=== PATIENT | female | born 1980 | race Caucasian/White ===

== ENCOUNTER → 2017-12-21 | Outpatient (CLI) | payer OTHER | LOC: COL.RAD 12-20 12:45 | DX: D25.9 Leiomyoma of uterus, unspecified (principal); N85.8 Other specified noninflammatory disorders of uterus; N84.1 Polyp of cervix uteri ==

== ENCOUNTER → 2018-12-26 | Outpatient (CLI) | payer OTHER | LOC: COL.RAD 09:31 | DX: K21.9 Gastro-esophageal reflux disease without esophagitis (principal); K80.20 Calculus of gallbladder without cholecystitis without obstruction ==

== ENCOUNTER 2019-11-09 21:03 | Inpatient (IN) | payer OTHER ==
[~2019-11-09] VITALS: Ht 167.6 cm; Wt 117.7 kg
[2019-11-09 21:49] LABS: BASO # 0.1 (0.0-0.2); BASO % 0.8 % (0.0-2.0); EOS # 0.1 (0.0-0.7); EOS % 0.9 % (0-4.0); GRAN # 8.4 (1.4-6.5); GRAN % 66.2 % (42.2-75.2); HEMATOCRIT 41.5 % (37.0-47.0); HEMOGLOBIN 13.5 g/dl (12.5-16.0); LYMPH # 3.3 (1.2-3.4); LYMPH % 25.6 % (20.0-51.0); MEAN CELL VOLUME 93 fl (80.0-100.0); MEAN CORPUSCULAR HEMOGLOBIN 30 pg (27.0-31.0); MEAN CORPUSCULAR HGB CONC 33 g/dl (33.0-37.0); MEAN PLATELET VOLUME 9.1 fl (7.4-10.4); MONO # 0.8 (0.1-0.6); MONO % 6.1 % (1.7-9.3); PLATELET COUNT 445 K/mm3 (130-400); RED BLOOD COUNT 4.47 M/mm3 (4.10-5.30); REDCELL DISTRIBUTION WIDTH-CV 13.8 % (11.5-14.5)
[2019-11-09 22:02] LABS: ALANINE AMINOTRANSFERASE 22 U/L (9-52); ALBUMIN 4.4 gm/dL (3.5-5.0); ALKALINE PHOSPHATASE 102 U/L (50-136); ANION GAP 10 mmol/L (7-16); AST,SGOT 33 U/L (15-37); BILIRUBIN,TOTAL 0.1 mg/dL (0.0-1.0); BLOOD UREA NITROGEN 16 mg/dL (7-17); C-REACTIVE PROTEIN 1.6 mg/dL (0.0-0.9); CALCIUM 9.1 mg/dL (8.4-10.2); CARBON DIOXIDE 27 mmol/L (22-30); CHLORIDE 102 mmol/L (98-107); CREATININE, serum 0.88 (0.52-1.25); GLUCOSE 133 mg/dL (74-106); LIPASE 175 U/L (23-300); POTASSIUM 3.5 mmol/L (3.4-5.0); SODIUM 138 mmol/L (137-145); TOTAL PROTEIN 8.5 gm/dL (6.4-8.2)
[2019-11-09 22:13] LABS: TROPONIN-I < 0.012 ng/mL (0.000-0.035)
[2019-11-09 22:57] LABS: COLLECTION METHOD CLEAN CATCH
[2019-11-09 23:03] LABS: MUCOUS Present /lpf; PH 6 (5-8); SQUAMOUS EPITHELIAL 0-2 /hpf; URINE APPEARANCE Clear; URINE BACTERIA None Seen /hpf; URINE BILIRUBIN Negative (NEGATIVE); URINE BLOOD 1+ (NEGATIVE); URINE COLOR Yellow; URINE GLUCOSE Negative (NEGATIVE); URINE KETONE Trace (NEGATIVE); URINE LEUKOCYTE ESTERASE Negative (NEGATIVE); URINE NITRATE Negative (NEGATIVE); URINE PROTEIN(semi-quant) Negative (NEGATIVE); URINE RBC 0-2 /hpf; URINE UROBILINOGEN Negative (NEGATIVE)
[2019-11-10] VITALS (8 sets, daily range): BP systolic 118–139; BP diastolic 50–68; PULSE 67–102; TEMP 97.8–99.9
[2019-11-10 11:41] LABS: BASO # 0.1 (0.0-0.2); BASO % 0.4 % (0.0-2.0); GRAN # 12.5 (1.4-6.5); GRAN % 86.5 % (42.2-75.2); HEMOGLOBIN 13.1 g/dl (12.5-16.0); LYMPH % 6.7 % (20.0-51.0); MEAN CELL VOLUME 93 fl (80.0-100.0); MEAN CORPUSCULAR HEMOGLOBIN 30 pg (27.0-31.0); MEAN CORPUSCULAR HGB CONC 33 g/dl (33.0-37.0); MONO # 0.9 (0.1-0.6); MONO % 5.9 % (1.7-9.3); RED BLOOD COUNT 4.32 M/mm3 (4.10-5.30); REDCELL DISTRIBUTION WIDTH-CV 13.9 % (11.5-14.5)
[2019-11-10 11:42] LABS: PLATELET COUNT 299 K/mm3 (130-400)
[2019-11-10 11:51] LABS: ALBUMIN 4.3 gm/dL (3.5-5.0); BILIRUBIN,TOTAL 0.3 mg/dL (0.0-1.0); CALCIUM 8.6 mg/dL (8.4-10.2); CREATININE, serum 0.59 (0.52-1.25); POTASSIUM 3.9 mmol/L (3.4-5.0); TOTAL PROTEIN 8.3 gm/dL (6.4-8.2)
[2019-11-11 04:00] VITALS: BP 116/52; PULSE 84; TEMP 97.9
[2019-11-11 07:10] LABS: ALBUMIN 3.8 gm/dL (3.5-5.0); BASO # 0.1 (0.0-0.2); BASO % 0.3 % (0.0-2.0); BILIRUBIN,TOTAL 0.4 mg/dL (0.0-1.0); CALCIUM 8.8 mg/dL (8.4-10.2); CREATININE, serum 0.66 (0.52-1.25); GRAN % 88.7 % (42.2-75.2); HEMATOCRIT 38.6 % (37.0-47.0); HEMOGLOBIN 12.5 g/dl (12.5-16.0); LYMPH # 0.9 (1.2-3.4); LYMPH % 4.9 % (20.0-51.0); MEAN CELL VOLUME 94 fl (80.0-100.0); MEAN CORPUSCULAR HEMOGLOBIN 30 pg (27.0-31.0); MEAN CORPUSCULAR HGB CONC 32 g/dl (33.0-37.0); MEAN PLATELET VOLUME 9.6 fl (7.4-10.4); MONO % 5.3 % (1.7-9.3); PLATELET COUNT 352 K/mm3 (130-400); POTASSIUM 3.8 mmol/L (3.4-5.0); RED BLOOD COUNT 4.11 M/mm3 (4.10-5.30); REDCELL DISTRIBUTION WIDTH-CV 14.1 % (11.5-14.5); TOTAL PROTEIN 7.6 gm/dL (6.4-8.2)
[2019-11-11 07:34] VITALS: BP 117/59; PULSE 91; TEMP 98.6
[2019-11-11 07:37] LABS: INR 1.8 (0.8-3.0); PROTHROMBIN TIME 21.4 SECONDS (9.7-12.8)
[2019-11-11 11:02] LABS: PROTHROMBIN TIME 23.3 SECONDS (9.7-12.8)
[2019-11-11 11:30] VITALS: BP 124/65; PULSE 97; TEMP 99.5
[2019-11-11 15:01] VITALS: BP 109/42; PULSE 89; TEMP 98.8
[2019-11-11 18:25] LABS: INR 1.8 (0.8-3.0); PROTHROMBIN TIME 21.6 SECONDS (9.7-12.8)
[2019-11-11 19:40] VITALS: BP 117/64; PULSE 96; TEMP 101.2
[2019-11-11 22:05] VITALS: TEMP 99.9
[2019-11-12] VITALS (11 sets, daily range): BP systolic 118–131; BP diastolic 59–73; PULSE 91–105; TEMP 98.6–102.5
[2019-11-12 07:20] LABS: INR 1.8 (0.8-3.0); PROTHROMBIN TIME 21.5 SECONDS (9.7-12.8)
[2019-11-12 07:27] LABS: ALBUMIN 3.2 gm/dL (3.5-5.0); BILIRUBIN,TOTAL 0.6 mg/dL (0.0-1.0); CALCIUM 8.1 mg/dL (8.4-10.2); CREATININE, serum 0.71 (0.52-1.25); POTASSIUM 3.6 mmol/L (3.4-5.0); TOTAL PROTEIN 6.8 gm/dL (6.4-8.2)
[2019-11-12 07:40] LABS: BASO # 0.1 (0.0-0.2); BASO % 0.3 % (0.0-2.0); GRAN # 18.8 (1.4-6.5); GRAN % 89.6 % (42.2-75.2); HEMOGLOBIN 11.3 g/dl (12.5-16.0); LYMPH # 1.2 (1.2-3.4); LYMPH % 5.8 % (20.0-51.0); MEAN CELL VOLUME 94 fl (80.0-100.0); MEAN CORPUSCULAR HEMOGLOBIN 31 pg (27.0-31.0); MEAN CORPUSCULAR HGB CONC 33 g/dl (33.0-37.0); MEAN PLATELET VOLUME 9.6 fl (7.4-10.4); MONO # 0.8 (0.1-0.6); MONO % 3.7 % (1.7-9.3); PLATELET COUNT 322 K/mm3 (130-400); REDCELL DISTRIBUTION WIDTH-CV 14.5 % (11.5-14.5)
[2019-11-12 07:49] LABS: HEMATOCRIT 34.8 % (37.0-47.0)
[2019-11-12] MEDS ORDERED: TUMERIC (13:58)
[2019-11-12] MEDS ORDERED: GINGER500 MG PO (13:59)
[2019-11-12] MEDS ORDERED: [UNRECOGNIZED DRUG - OTHER] (14:00)
[2019-11-12 15:20] LABS: INR 1.7 (0.8-3.0); PROTHROMBIN TIME 20.7 SECONDS (9.7-12.8)
== END 2019-11-12 21:18 | disposition critical access hospital (66) | DRG 444 ==
LOC: COL.ER 21:03 → SURG 23:56 → COL.ER 23:56 → SURG 23:57
PROVIDERS: Emergency Medicine; Hospitalist; ADMIT Surgery
DX: K80.00 Calculus of gallbladder with acute cholecystitis without obstruction (principal); A41.9 Sepsis, unspecified organism; R79.1 Abnormal coagulation profile; D25.9 Leiomyoma of uterus, unspecified
CPT/HCPCS: OP; 99222; 99232-AI; A4216; A9284; G0378; J1100; J1170; J1956; J2270; J2405; J2543; J2550; J2704; J3010; J3430; J7030; J7120; P9012; Q9967

== ENCOUNTER 2022-04-03 12:36 | Inpatient (IN) | payer OTHER ==
[~2022-04-03] VITALS: Ht 167.6 cm; Wt 121.6 kg
[~2022-04-03 12:36] MED LIST: GINGER500 MG PO; TUMERIC; [UNRECOGNIZED DRUG - OTHER]
[2022-04-03 13:59] LABS: HEMOGLOBIN 11.8 g/dl (12.5-16.0); MEAN CELL VOLUME 91 fl (80.0-100.0); MEAN CORPUSCULAR HEMOGLOBIN 30 pg (27-31); MEAN CORPUSCULAR HGB CONC 33 g/dl (33.0-37.0); MEAN PLATELET VOLUME 9.1 fl (7.4-10.4); PLATELET COUNT 404 K/mm3 (130-400); RED BLOOD COUNT 3.97 M/mm3 (4.10-5.30); REDCELL DISTRIBUTION WIDTH-CV 14.3 % (11.5-14.5)
[2022-04-03 14:02] LABS: HEMATOCRIT 36.2 % (37.0-47.0)
[2022-04-03 14:21] LABS: ALBUMIN 3.5 gm/dL (3.5-5.0); BILIRUBIN,TOTAL 0.6 mg/dL (0.2-1.2); C-REACTIVE PROTEIN 3.7 mg/dL (0.00-0.50); CALCIUM 8.9 mg/dL (8.4-10.2); CREATININE, serum 0.84 mg/dL (0.57-1.11); POTASSIUM 3.4 mmol/L (3.5-4.5); TOTAL PROTEIN 7.4 gm/dL (6.2-8.1)
[2022-04-03 14:28] LABS: BAND 3 % (0-10); HYPOCHROMIA 1+; LYMPHOCYTE 5 % (20.0-51.0); NEUTROPHILS 90 % (42.0-75.2)
[2022-04-03 14:29] LABS: PLATELET ESTIMATE INCREASED (NORMAL)
[2022-04-03 14:45] LABS: COLLECTION METHOD CATHETER
[2022-04-03 16:01] LABS: MUCOUS Present (NOT PRESENT); PH 6 (5-8); SQUAMOUS EPITHELIAL 0-2 /hpf (0-10); URINE APPEARANCE Clear (CLEAR/HAZY); URINE BACTERIA None Seen /hpf (NONE SEEN); URINE COLOR Yellow (YELLOW); URINE RBC None Seen /hpf (0-2)
[2022-04-03 16:02] LABS: URINE BILIRUBIN Negative (NEGATIVE); URINE BLOOD Negative (NEGATIVE); URINE GLUCOSE Negative (NEGATIVE); URINE KETONE Negative (NEGATIVE); URINE LEUKOCYTE ESTERASE Negative (NEGATIVE); URINE NITRATE Negative (NEGATIVE); URINE PROTEIN(semi-quant) 1+ (NEGATIVE); URINE UROBILINOGEN Negative (NEGATIVE)
[2022-04-03] MEDS ORDERED: MOTRIN 600600 MG/TAB PO (19:30)
[2022-04-03] MEDS ORDERED: TYLENOL 325MG325 MG PO (19:30)
[2022-04-03] MEDS ORDERED: MULTI VITAMINS1 TAB PO (19:31)
[2022-04-03 19:38] VITALS: BP 140/71; PULSE 121; TEMP 99.9
[2022-04-03 23:10] VITALS: BP 107/46; BP 99/34; PULSE 88; TEMP 98.5
--- NOTE | 2022-04-04 01:25 | NUR ---
PATIENT UP TO ROOM 323. ALERT AND ORIENTED. AMBULATED TO BED WITH STANDBY ASSIST. C/O MODERATE PAIN AND NAUSEA. PRN MOTRIN AND ZOFRAN GIVEN. IV L FA WITH ABX INFUSING. MED RX AND ADMIN ASSESSMENT COMPLETED. PATIENT REQUESTED FOOD, AND CRACKERS, BROTH, AND JELLO GIVEN AND TOLERATED. PATIENT CURRENTLY IN BED RESTING, RR EVEN AND UNLABORED. DENYING NEED FOR PAIN MEDS WHEN AWAKENED. CALL LIGHT IN REACH.
[2022-04-04 03:37] VITALS: BP 112/47; PULSE 86; TEMP 99
[2022-04-04 07:13] LABS: HEMOGLOBIN 10.9 g/dl (12.5-16.0); MEAN CELL VOLUME 90 fl (80.0-100.0); MEAN CORPUSCULAR HEMOGLOBIN 30 pg (27-31); MEAN CORPUSCULAR HGB CONC 33 g/dl (33.0-37.0); PLATELET COUNT 315 K/mm3 (130-400); RED BLOOD COUNT 3.62 M/mm3 (4.10-5.30); REDCELL DISTRIBUTION WIDTH-CV 14.6 % (11.5-14.5)
[2022-04-04 07:22] LABS: HEMATOCRIT 32.7 % (37.0-47.0)
[2022-04-04 07:29] VITALS: BP 101/43; PULSE 85; TEMP 98.7
[2022-04-04] MEDS ORDERED: DOXYCYCLINE HY100 MG PO (07:51)
[2022-04-04] MEDS ORDERED: MOTRIN 800800 MG/TAB PO (07:51)
[2022-04-04] MEDS ORDERED: AMOXICILLIN 8751 TAB PO (07:52)
[2022-04-04 07:54] LABS: LYMPHOCYTE 5 % (20.0-51.0); PLATELET ESTIMATE NORMAL (NORMAL)
[2022-04-04 07:55] LABS: BAND 10 % (0-10); NEUTROPHILS 83 % (42.0-75.2)
--- NOTE | 2022-04-04 08:00 | NUR ---
PATIENT IS A&O. VSS. PATIENT C/O MARRERO, GAVE PRN TYLENOL. NO C/O N/V. IV FLUIDS INFUSUNG VIA PUMP INTO LEFT FORARM IV. TOLERATING GEN DIET. INDEPENDENT IN ROOM. HEAD TO TOE ASSESSMENT COMPLETE. NO OTHER NEEDS AT THIS TIME. CALL LIGHT IN REACH.
--- NOTE | 2022-04-04 08:30 | NUR ---
AT BEDSIDE. SEE ORDERS.
--- NOTE | 2022-04-04 09:24 | NUR ---
Initial visit; Patient thanked Sole Buffer for looking in on her and offering God's blessings. Patient stated that she was about to be discharged and will be going home.
--- NOTE | 2022-04-04 09:59 | NUR ---
deer farm worker met with patient to discuss discharge plan. Patient reports that she lives at home with her Pio ([phone]) in [place]. Patient is independent with her activities of daily living and does not utilize any DME to assist with mobility. Patient has no home oxygen needs. Patient confirms that she still sees Ekta Loo at [facility] [facility]. Patient utilizes [facility] for medications with no cost difficulty. Patient "thinks" that she has a DPOA-HC established listing her . Patient is planning on returning home with no concerns. Discharge plan: Home
--- NOTE | 2022-04-04 11:05 | NUR ---
PATIENT IS DISCHARGING HOME VIA AMBULATORY WITH TO PERSONAL VEHICLE. GAVE DISCHARGE INSTRUCTIONS, E-SCRIPTS SENT, AND DISCUSSED F/U APT. ANSWERED QUESTIONS/CONCERNS. IV DC'D AND COVERED SITE WITH [employer]. PATIENT IS DRESSED, PACKED AND DISCHARGED.
== END 2022-04-04 11:05 | disposition home or self-care (01) | DRG 760 ==
LOC: COL.ER 12:36 → SURG 17:56
PROVIDERS: Obstetrics & Gynecology; Physician Assistant; ADMIT Obstetrics & Gynecology
DX: D25.9 Leiomyoma of uterus, unspecified (principal); E87.2 Acidosis; R65.10 Systemic inflammatory response syndrome (SIRS) of non-infectious origin without acute organ dysfunction; D72.829 Elevated white blood cell count, unspecified; D75.839 Thrombocytosis, unspecified; E87.6 Hypokalemia
CPT/HCPCS: J0694; J0696; J2270; J2405; J7030; J7120; Q9967

== ENCOUNTER → 2024-05-14 | Outpatient (CLI) | payer OTHER ==
[~2024-05-14] MED LIST changes: +AMOXICILLIN 8751 TAB PO; +DOXYCYCLINE HY100 MG PO; +MOTRIN 600600 MG/TAB PO; +MOTRIN 800800 MG/TAB PO; +MULTI VITAMINS1 TAB PO; +TYLENOL 325MG325 MG PO
== END ==
LOC: MC.RAD 09:58
DX: Z12.31 Encounter for screening mammogram for malignant neoplasm of breast (principal); N64.89 Other specified disorders of breast

== ENCOUNTER → 2024-05-20 | Outpatient (CLI) | payer OTHER | LOC: MC.RAD 08:27 | DX: Z12.31 Encounter for screening mammogram for malignant neoplasm of breast (principal) ==